=== PATIENT | female | born 1970 | race Caucasian/White ===

== ENCOUNTER → 2017-01-03 | Day surgery (SDC) | payer OTHER ==
[~2017-01-03] MED LIST: CALC500T54 PO; CELE100C PO; CHOL500016 PO; CYAN10005 PO; FLEXERIL PO; FLUT9.9S NS; GUAI600T47 PO; HYDR25TA9 PO; HYDROmorphone 2 MG/ML VIAL IV PRN; IRON; IV RINGERS,LACTATED 1000ML 1,000 ML IV SCH; LIDOCAINE 1% PF 2 ML VIAL. ID PRN; LOSA100T2 PO; METH18TA5 PO; MIDAZOLAM HCL/PF 2 MG/2 ML VIAL. IV PRN; MILN50TA PO; MORPHINE SULFATE 2 MG/ML DISP.SYRIN. IV PRN; MULT1TAB52 PO; ONDANSETRON PF 4 MG/2 ML VIAL. IV PRN; PREG150C PO; PROCHLORPERAZINE 10 MG/2 ML VIAL. IV PRN; PROPOFOL 40 ML IV ONE; RANI150T6 PO; fentaNYL PF VIAL 100 MCG/2 ML VIAL IV PRN
[2017-01-03 10:02] VITALS: BP 109/66
== END | disposition home or self-care (01) ==
LOC: SURG 08:44
PROVIDERS: ATTEND Internal Medicine Gastroenterology
DX: K64.0 First degree hemorrhoids (principal); K57.30 Diverticulosis of large intestine without perforation or abscess without bleeding; I10 Essential (primary) hypertension; M19.91 Primary osteoarthritis, unspecified site; F41.9 Anxiety disorder, unspecified; F32.9 Major depressive disorder, single episode, unspecified; F17.200 Nicotine dependence, unspecified, uncomplicated; Z87.39 Personal history of other diseases of the musculoskeletal system and connective tissue; Z98.84 Bariatric surgery status; Z98.890 Other specified postprocedural states; Z88.8 Allergy status to other drugs, medicaments and biological substances
CPT/HCPCS: 43235; 45378; J2704